=== PATIENT | female | born 1985 | race Hispanic/Latino ===

== ENCOUNTER 2024-04-01 12:20 | Inpatient (IN) | payer MEDICAID, OTHER ==
[2024-04-04] MEDS ORDERED: ePHEDrine Sulfate 50 MG/10 ML VIAL ONE (08:00)
[2024-04-04] MEDS ORDERED: Bupivacaine 0.25% HCL 30 ML VIAL ONE (08:00)
[2024-04-04] MEDS ORDERED: Ondansetron PF 4 MG/2 ML Vial IVP PRN (13:22)
[2024-04-04] MEDS ORDERED: Misoprostol 200 MCG TAB PR PRN (13:22)
[2024-04-04] MEDS ORDERED: hydrALAZINE 20 MG/ML VIAL SLOW IVP PRN (13:22)
[2024-04-04] MEDS ORDERED: Acetaminophen 500 MG TAB PO PRN (13:22)
[2024-04-04] MEDS ORDERED: fentaNYL 50 mcg/mL 1 mL Vial SLOW IVP PRN (13:22)
[2024-04-04] MEDS ORDERED: Tranexamic Acid 1,000 MG/10 ML VIAL IVP PRN (13:22)
[2024-04-04] MEDS ORDERED: Ibuprofen 800 MG TAB PO PRN (13:22)
[2024-04-04] MEDS ORDERED: Carboprost 250 MCG/ML AMP IM PRN (13:22)
[2024-04-04] MEDS ORDERED: Methylergonovine 0.2 MG/ML VIAL IM PRN (13:22)
[2024-04-04] MEDS ORDERED: Diphenoxylate HCl/Atropine Tablet PO PRN ×2 (13:22)
[2024-04-04] MEDS ORDERED: Oxytocin 30 units/NS 500 ML 500 ML IV SCH ×2 (13:22)
[2024-04-04] MEDS ORDERED: Promethazine HCl 25 MG/ML VIAL IM PRN (13:22)
[2024-04-04] MEDS ORDERED: Lidocaine 1% (PF) 30 ML VIAL SC PRN (13:22)
[2024-04-04] MEDS: Misoprostol 100 MCG TAB VAG SCH (13:51)
[2024-04-04 14:08] VITALS: BMI 39.9
[2024-04-04 14:12] LABS: Hematocrit 37.2 % (34.9-44.5); Hemoglobin 12.8 g/dL (12.0-15.5); Mean Corpuscular HGB CONC 34.4 g/dL (32.0-36.0); Mean Corpuscular Hemoglobin 29.7 pg (27.0-33.0); Mean Corpuscular Volume 86.3 fL (81.6-98.3); Mean Platelet Volume 12.4 fL (7.4-10.4); Platelet Count 142 10x3/uL (150-450); RBC Distribution Width 12.9 % (11.5-14.5); Red Blood Cell (RBC) Count 4.31 10x6/uL (3.90-5.03); White Blood Cell (WBC) Count 8.3 10x3/uL (3.5-10.5)
[2024-04-04 14:41] LABS: HBsAg Index 0.27 S/CO (0-0.99); Hep B Surf Ag - L&D Non-Reactive S/CO (NonReactive)
[2024-04-04 14:42] LABS: Syphilis Antibody Nonreactive (Nonreactive); Syphilis Antibody Index 0.05 S/CO (<1.00 Non-Reactive)
[2024-04-04] MEDS: Lactated Ringer's 1,000 ML IV SCH (20:43)
[2024-04-04] MEDS: Misoprostol 100 MCG TAB ONE (20:43)
[2024-04-04] MEDS: Penicillin G Potassium 5 MILL.UNITS in Sodium Chloride 0.9% 100 ML IVPB SCH (20:51)
[2024-04-04] MEDS: fentaNYL/Ropivacaine Epidural 100 ML ONE (22:40)
[2024-04-05] MEDS: Penicillin G 2.5 MILL.units 2.5 MILL.UNITS in Premix 1 BAG IVPB SCH (00:43)
[2024-04-05] MEDS: Oxytocin 30 units/NS 500 ML 500 ML IV SCH (00:44)
[2024-04-05] MEDS: Penicillin G Potassium 5 MILL.UNITS VIAL ONE (01:49)
[2024-04-05] MEDS: Calcium Carbonate 500 MG ChewTAB PO SCH (01:56)
[2024-04-05] MEDS ORDERED: Naloxone HCl 0.4 mg/ml Vial IVP PRN ×2 (03:06)
[2024-04-05] MEDS ORDERED: diphenhydrAMINE 50 MG/ML VIAL IVP PRN (03:06)
[2024-04-05] MEDS ORDERED: Moisturizing Cream (Eucerin) 113 GM JAR TOP PRN (03:06)
[2024-04-05] MEDS ORDERED: Ondansetron PF 4 MG/2 ML Vial IVP PRN ×2 (03:06→06:06)
[2024-04-05] MEDS ORDERED: Lactated Ringer's 500 ML IV PRN (03:06)
[2024-04-05] MEDS ORDERED: Promethazine HCl 25 MG/ML VIAL IM PRN ×2 (03:06→06:06)
[2024-04-05] MEDS ORDERED: ePHEDrine Sulfate 50 MG/10 ML VIAL SLOW IVP PRN (03:06)
[2024-04-05] MEDS ORDERED: Acetaminophen 325 MG TAB PO PRN (03:06)
[2024-04-05] MEDS ORDERED: fentaNYL 2 mcg/Ropivacaine 0.2% Epidural 100 ML CADD EPIDURAL SCH (03:15)
[2024-04-05] MEDS ORDERED: Communication Order-Pharmacy FS SCH (03:15)
[2024-04-05] MEDS ORDERED: Milk Of Magnesia 30 ML UDCUP PO PRN (06:06)
[2024-04-05] MEDS ORDERED: Lanolin Ointment 7 GM TUBE TOP PRN (06:06)
[2024-04-05] MEDS ORDERED: hydrALAZINE 20 MG/ML VIAL SLOW IVP PRN (06:06)
[2024-04-05] MEDS ORDERED: diphenhydrAMINE 25 MG CAP PO PRN (06:06)
[2024-04-05] MEDS ORDERED: Boostrix 0.5 ML (Tdap) VIAL (>/=7 yrs of age) IM ONE (06:06)
[2024-04-05] MEDS ORDERED: Methylergonovine 0.2 MG/ML VIAL IM PRN (06:06)
[2024-04-05] MEDS ORDERED: Preparation H Ointment 28 GM TUBE PR PRN (06:06)
[2024-04-05] MEDS ORDERED: Oxytocin 30 units/NS 500 ML 500 ML IV SCH (06:06)
[2024-04-05] MEDS ORDERED: Bisacodyl 10 MG SUPP PR PRN (06:06)
[2024-04-05] MEDS: Ibuprofen 800 MG TAB PO SCH (06:50)
[2024-04-05] MEDS: Ferrous Sulfate 325 MG TAB PO SCH (07:44)
[2024-04-05 07:46] LABS: #Basophils 0.02 10x3/uL (0.0-0.2); #Eosinophils 0.08 10x3/uL (0.0-0.5); #Monocytes 0.58 10x3/uL (0.0-1.1); #Neutrophils 8.21 10x3/uL (1.5-8.4); %Basophils 0.2 % (0.0-2.0); %Eosinophils 0.8 % (0.0-6.0); %Lymphocytes 10.5 % (18.0-47.0); %Monocytes 5.8 % (0.0-10.0); %Neutrophils 82.5 % (40.0-75.0); Hematocrit 34.6 % (34.9-44.5); Hemoglobin 12.3 g/dL (12.0-15.5); Mean Corpuscular HGB CONC 35.5 g/dL (32.0-36.0); Mean Corpuscular Hemoglobin 30.5 pg (27.0-33.0); Mean Corpuscular Volume 85.9 fL (81.6-98.3); Mean Platelet Volume 12.7 fL (7.4-10.4); Platelet Count 159 10x3/uL (150-450); RBC Distribution Width 13.2 % (11.5-14.5); Red Blood Cell (RBC) Count 4.03 10x6/uL (3.90-5.03)
[2024-04-05] MEDS: Prenatal Vitamin 1 TAB PO SCH (08:38)
[2024-04-05] MEDS: Docusate 100 MG CAP PO SCH (08:38)
[2024-04-05] MEDS: Benzocaine-Menthol 82.5 ML CAN TOP PRN (13:41)
[2024-04-06 07:39] VITALS: BP 112/61; TEMP 97.6
== END 2024-04-06 14:09 | disposition home or self-care (01) | DRG 768 ==
LOC: CSHLD 04-04 11:56 → CSHPP 04-05 05:50
PROVIDERS: ADMIT Family Medicine; ATTEND Family Medicine
PROC: 10E0XZZ Delivery of Products of Conception, External Approach (ICD-10-PCS; principal; 2024-04-05)
PROC: 0UQJXZZ Repair Clitoris, External Approach (ICD-10-PCS; 2024-04-05)
PROC: 3E0DXGC Introduction of Other Therapeutic Substance into Mouth and Pharynx, External Approach (ICD-10-PCS; 2024-04-05)
DX: O76 Abnormality in fetal heart rate and rhythm complicating labor and delivery (principal); Z37.0 Single live birth; O99.12 Other diseases of the blood and blood-forming organs and certain disorders involving the immune mechanism complicating childbirth; D69.6 Thrombocytopenia, unspecified; Z3A.40 40 weeks gestation of pregnancy; E66.9 Obesity, unspecified; O99.214 Obesity complicating childbirth; Z79.82 Long term (current) use of aspirin; Z79.899 Other long term (current) drug therapy; O70.0 First degree perineal laceration during delivery
CPT/HCPCS: 36415; 51702; 85025; 85027; 86780; 86850; 86900; 86901; 87340; J0665; J2540; J2590